=== PATIENT | female | born 1990 | race African-American/Black ===

== ENCOUNTER 2016-07-03 22:43 | Inpatient (IN) | payer OTHER ==
[2016-07-03 23:43] LABS: APPEARANCE,URINE CLEAR; BILIRUBIN,URINE NEGATIVE (NEGATIVE); GLUCOSE, URINE NEGATIVE (NEGATIVE); KETONES,URINE NEGATIVE (NEGATIVE); LEUKOCYTE ESTERASE,URINE SMALL (NEGATIVE); NITRITE,URINE NEGATIVE (NEGATIVE); PROTEIN,URINE NEGATIVE (NEGATIVE); URINE SPECIFIC GRAVITY 1.014; UROBILINOGEN,URINE NEGATIVE mg/dL (<2.0)
[2016-07-03 23:46] LABS: AMNISURE (ROM) POSITIVE (NEGATIVE)
[2016-07-03 23:56] LABS: URINE BARBITURATES SCREEN NEGATIVE; URINE METHADONE SCREEN NEGATIVE; URINE OPIATES LOW NEGATIVE; URINE PHENCYCLIDINE SCREEN NEGATIVE
[2016-07-03] MEDS ORDERED: RINGERS SOLUTION,LACTATED 1,000 ML IV PRN (23:57)
[2016-07-03] MEDS ORDERED: RINGERS SOLUTION,LACTATED 1,000 ML IV ONE (23:57)
[2016-07-03] MEDS ORDERED: OXYTOCIN/NORMAL SALINE 1,000 ML IV PRN (23:59)
[2016-07-04] MEDS ORDERED: PENICILLIN G POTASSIUM 5,000,000 UNIT in DEXTROSE 5%-WATER 100 ML IV ONE ×2
[2016-07-04] MEDS ORDERED: BENZOIN/ALOE VERA/STORAX/TOLU TINCTURE 60 ML TP PRN (00:01)
[2016-07-04] MEDS ORDERED: EPHEDRINE SULFATE INJ 50 MG/1 ML AMPULE IV PRN (00:01)
[2016-07-04] MEDS ORDERED: EPHEDRINE SULFATE INJ 50 MG/1 ML AMPULE IV ONE (00:01)
[2016-07-04] MEDS ORDERED: DIPHENHYDRAMINE HCL 50 MG/ML VIAL IV PRN (00:01)
[2016-07-04] MEDS ORDERED: BUPIVACAINE HCL 0.25 % INJ/PF (2.5 MG/1 ML) 30 ML VIAL INFIL ONE (00:01)
[2016-07-04] MEDS ORDERED: FENTANYL/BUPIVACAINE/NS/PF 100 ML EPI PRN (00:01)
[2016-07-04] MEDS ORDERED: OXYTOCIN/NORMAL SALINE 0 UNIT/0 ML RTUINJ ONE (00:17)
[2016-07-04] MEDS ORDERED: PENICILLIN G-K 5 MILLION UNIT VIAL ONE ×2 (00:17→03:57)
[2016-07-04 00:21] LABS: ABSOLUTE EOSINOPHILS # (AUTO) 0.1 10^3/uL (0.0-0.6); ABSOLUTE LYMPHOCYTES (AUTO) 1.8 10^3/uL (0.5-4.7); ABSOLUTE MONOCYTES (AUTO) 1.1 10^3/uL (0.1-1.4); ABSOLUTE NEUT (AUTO) 9.8 10^3/uL (1.7-8.2); BASOPHILS % (AUTO) 0.1 % (0-2); EOSINOPHILS % (AUTO) 0.7 % (0-6); HEMATOCRIT 34.4 % (36.0-47.0); HEMOGLOBIN 11.2 g/dL (12.0-15.5); HGB HCT DIFFERENCE -0.8; LYMPHOCYTES % (AUTO) 14.1 % (13-45); MEAN CORPUSCULAR HEMOGLOBIN 25.3 pg (27.0-33.4); MEAN CORPUSCULAR HGB CONC 32.5 g/dL (32.0-36.0); MEAN CORPUSCULAR VOLUME 78 fl (80-97); MONOCYTES % (AUTO) 8.3 % (3-13); RED BLOOD COUNT 4.42 10^6/uL (3.72-5.28); RED CELL DISTRIBUTION WIDTH 15.6 % (11.5-14.0); SEGMENTED NEUTROPHILS % (AUTO) 76.8 % (42-78); WHITE BLOOD COUNT 12.8 10^3/uL (4.0-10.5)
[2016-07-04] MEDS ORDERED: PENICILLIN G-K 5 MILLION UNIT VIAL IV PRN (03:30)
[2016-07-04] MEDS ORDERED: PENICILLIN G POTASSIUM 2,500,000 UNIT in DEXTROSE 5%-WATER 50 ML IV SCH (04:00)
[2016-07-04] MEDS ORDERED: MISOPROSTOL 0.2 MG TABLET ONE (05:44)
[2016-07-04] MEDS ORDERED: LIDOCAINE 1% INJ-PF (10 MG/ML) 30 ML SDV ONE (05:44)
[2016-07-04] MEDS ORDERED: OXYTOCIN/NORMAL SALINE 20 UNIT/1,000 ML RTUINJ ONE (05:44)
--- NOTE | 2016-07-04 08:01 | L&D Flow Sheet ---
LD Flowsheet Datetime Report Generated by CPN: 07/04/2016 08:00 Datetime: 07/04/2016 07:49 Pushing Position: Pushing with Contractions (Cori Camp, RNC) Pushing Progress: with Pushing (Cori Camp, RNC) Datetime: 07/04/2016 07:47 Communication Communication: Provider at Bedside (Cori Camp, RNC) Datetime: 07/04/2016 07:17 Actions for Decelerations: IV Bolus (Jael Marhefka, RN) Datetime: 07/04/2016 07:15 Vaginal Exam Dilatation (cm): 10.0 (Jael Marhefka, RN) Effacement (%): 100 (Jael Marhefka, RN) Station: 1 (Jael Marhefka, RN) Exam by: BSudhir Negron, RN (Jael Marhefka, RN) Datetime: 07/04/2016 07:14 Medications Pitocin (milliunit): Pitocin Discontinued (Jael Marhefka, RN) Datetime: 07/04/2016 07:13 Stage 2 Pushing: Urge to Push; Involuntary Pushing (Jael Marhefka, RN) Datetime: 07/04/2016 07:00 Respirations: 20 (Marimar Gonsalves) Uterine Activity Monitor Mode: External; Palpation (Marimar Gonsalves) Monitor Interventions for UA: [place] Adjusted (Marimar Gonsalves) Frequency (min): 1-3 (Marimar Gonsalves) Quality: Moderate to Strong (Marimar Gonsalves) Duration (sec): 50-70 (Marimar Gonsalves) Resting Tone (Palpate): Relaxed (Marimar Gonsalves) Assessment A Monitor Mode: External US (Marimar Gonsalves) Monitor Interventions for FHR: Ultrasound Adjusted (Marimar Gonsalves) FHR Baseline Rate : 130 (Marimar Gonsalves) FHR Baseline Changes: No Baseline Change (Marimar Gonsalves) Variability: Moderate 6-25 bpm (Marimar Gonsalves) Accelerations: 15X15 (Marimar Gonsalves) Decelerations: None (Marimar Gonsalves) LaborFlag: Labor (QS system process) Datetime: 07/04/2016 06:54 Provider Notified (Name): Dr Acosta notified of the patients cervix 9 with a lip/100/+1. Dr Acosta stated she will wait a little due to the patient being and next shift coming in soon. (Marimar Gonsalves) Datetime: 07/04/2016 06:53 Vaginal Exam Dilatation (cm): 9.0 (Annotations: anterior lip) (Marimar Gonsalves) Effacement (%): 100 (Marimar Gonsalves) Station: 1 (Marimar Gonsalves) Exam by: B Reilley RN (Marimar Gonsalves) Datetime: 07/04/2016 06:30 Vital Signs Stage of : Labor (Naomy Gomez, RN) Uterine Activity Monitor Mode: External; Palpation (Naomy Gomez, RN) Frequency (min): 1-5 (Naomy Gomez, RN) Quality: Strong (Naomy Gomez, RN) Duration (sec): 60-100 (Naomy Gomez, RN) Pattern: Normal: <= 5 Contractions in 10 Minutes (Naomy Gomez, RN) Resting Tone (Palpate): Relaxed (Naomy Gomez, RN) Contraction Comments: palpating contractions which match decels to confirm early deceleration (Naomy Gomez, RN) Assessment A Monitor Mode: External US (Naomy Gomez, RN) Monitor Interventions for FHR: Ultrasound Adjusted (Naomy Gomez, RN) FHR Baseline Rate : 130 (Naomy Gomez, RN) Variability: Moderate 6-25 bpm (Naomy Gomez, RN) Accelerations: 10X10 (Naomy Gomez, RN) Decelerations: Early (Naomy Gomez, RN) Communication Communication: RN at Bedside; RN Reviewed Strip (Naomy Gomez, RN) Datetime: 07/04/2016 06:26 I/O Interventions: Up to BR (Naomy Gomez, RN) Datetime: 07/04/2016 06:15 Vital Signs Stage of : Labor (Naomy Gomez, RN) Uterine Activity Monitor Mode: External; Palpation (Naomy Gomez, RN) Frequency (min): 1-6 (Naomy Gomez, RN) Quality: Strong (Naomy Gomez, RN) Duration (sec): 50-110 (Naomy Gomez, RN) Pattern: Normal: <= 5 Contractions in 10 Minutes (Naomy Gomez, RN) Resting Tone (Palpate): Relaxed (Naomy Gomez, RN) Assessment A Monitor Mode: External US (Naomy Gomez, RN) FHR Baseline Rate : 130 (Naomy Gomez, RN) Variability: Moderate 6-25 bpm (Naomy Gomez, RN) Accelerations: 15X15 (Naomy Gomez, RN) Decelerations: Early (Naomy Gomez, RN) Comments: episodes of stacked contractions, during noted decel (Naomy Gomez, RN) Medications Pitocin (milliunit): Pitocin Remains (milliunits) @ 8 (Naomy Gomez, RN) Communication Communication: RN at Bedside; RN Reviewed Strip (Naomy Gomez, RN) Datetime: 07/04/2016 06:11 NBP Sys/Elizabeth/Mean (mmHg): 108 (QS system process) : 71 (QS system process) : 85 (QS system process) Pulse: 93 (QS system process) LaborFlag: Labor (QS system process) Datetime: 07/04/2016 06:00 Vital Signs Stage of : Labor (Naomy Gomez, RN) Uterine Activity Monitor Mode: External; Palpation (Naomy Gomez, RN) Frequency (min): 3-4 (Naomy Gomez, RN) Quality: Strong (Naomy Gomez, RN) Duration (sec): 60-80 (Naomy Gomez, RN) Pattern: Normal: <= 5 Contractions in 10 Minutes (Naomy Gomez, RN) Resting Tone (Palpate): Relaxed (Naomy Gomez, RN) Assessment A Monitor Mode: External US (Naomy Gomez, RN) FHR Baseline Rate : 130 (Naomy Gomez, RN) Variability: Moderate 6-25 bpm (Naomy Gomez, RN) Accelerations: 10X10 (Naomy Gomez, RN) Decelerations: Early (Naomy Gomez, RN) Pain Pain Scale: 3 (Naomy Gomez, RN) Pain Presence: Intermittent (Naomy Gomez, RN) Pain Type: Contraction (Naomy Gomez, RN) Pain Location: Abdomen (Naomy Gomez, RN) Pain Goal: 1 (Naomy Gomez, RN) Pain Relief Measures: Comfort Measures (Naomy Gomez, RN) Pain Coping: Breathing Through Contractions (Naomy Gomez, RN) Medications Pitocin (milliunit): Pitocin Remains (milliunits) @ 8 (Naomy Gomez, RN) Comfort Measures: Breathing/Relaxation; Family Support (Naomy Gomez, RN) Communication Communication: RN at Bedside; RN Reviewed Strip (Naomy Gomez, RN) LaborFlag: Labor (QS system process) Datetime: 07/04/2016 05:58 Patient Care Comments: nursery notified of the potential need for them for delivery. (Marimar Gonsalves) Datetime: 07/04/2016 05:47 Vaginal Exam Dilatation (cm): 7.0 (Naomy Gomez, RN) Effacement (%): 90 (Naomy Gomez, RN) Station: 0 (Naomy Gomez, RN) Exam by: B Gomez, RN (Naomy Gomez, RN) Vaginal Bleeding: None (Naomy Gomez, RN) Cervix, Consistency: Soft (Naomy Gomez, RN) Cervix, Position: Midposition (Naomy Gomez, RN) Datetime: 07/04/2016 05:46 Patient Position/Activity: Right Tilt; Low Fowlers (Naomy Gomez, RN) Datetime: 07/04/2016 05:45 Vital Signs Stage of : Labor (Naomy Gomez, RN) Uterine Activity Monitor Mode: External; Palpation (Naomy Gomez, RN) Monitor Interventions for UA: [place] Adjusted (Naomy Gomez, RN) Frequency (min): 1-6 (Naomy Gomez, RN) Quality: Strong (Naomy Gomez, RN) Duration (sec): 50-80 (Naomy Gomez, RN) Pattern: Normal: <= 5 Contractions in 10 Minutes (Naomy Gomez, RN) Resting Tone (Palpate): Relaxed (Naomy Gomez, RN) Assessment A Monitor Mode: External US (Naomy Gomez, RN) Monitor Interventions for FHR: Ultrasound Adjusted (Naomy Gomez, RN) FHR Baseline Rate : 125 (Naomy Gomez, RN) Variability: Moderate 6-25 bpm (Naomy Gomez, RN) Accelerations: 10X10 (Naomy Gomez, RN) Decelerations: Early (Naomy Gomez, RN) Comments: RN at bedside adjusting FHR monitor (Naomy Gomez, RN) Medications Pitocin (milliunit): Pitocin Remains (milliunits) @ 8 (Naomy Gomez, RN) Communication Communication: RN at Bedside; RN Reviewed Strip (Naomy Gomez, RN) Datetime: 07/04/2016 05:38 Patient Care IV/Blood Work: New IV Bag Hung (Naomy Gomez, RN) Datetime: 07/04/2016 05:35 Monitor Interventions for UA: [place] Adjusted (Naomy Gomez, RN) Datetime: 07/04/2016 05:33 Monitor Interventions for UA: [place] Adjusted (Naomy Gomez, RN) Datetime: 07/04/2016 05:30 Vital Signs Stage of : Labor (Naomy Gomez, RN) Uterine Activity Monitor Mode: External; Palpation (Naomy Gomez, RN) Frequency (min): 2-3 (Naomy Gomez, RN) Quality: Strong (Naomy Gomez, RN) Duration (sec): 50-70 (Naomy Gomez, RN) Pattern: Normal: <= 5 Contractions in 10 Minutes (Naomy Gomez, RN) Resting Tone (Palpate): Relaxed (Naomy Gomez, RN) Assessment A Monitor Mode: External US (Naomy Gomez, RN) FHR Baseline Rate : 125 (Naomy Gomez, RN) Variability: Moderate 6-25 bpm (Naomy Gomez, RN) Accelerations: 15X15 (Naomy Gomez, RN) Decelerations: Early (Naomy Gomez, RN) Medications Pitocin (milliunit): Pitocin Remains (milliunits) @ 8 (Naomy Gomez, RN) Communication Communication: RN at Bedside; RN Reviewed Strip (Naomy Gomez, RN) Datetime: 07/04/2016 05:28 Patient Position/Activity: Right Lateral; Peanut Ball; Low Fowlers (Naomy Gomez, RN) Datetime: 07/04/2016 05:15 Vital Signs Stage of : Labor (Naomy Gomez, RN) Respirations: 16 (Naomy Gomez, RN) Temperature (F): 97.8 (Naomy Gomez, RN) Temperature (C): 36.6 (QS system process) Uterine Activity Monitor Mode: External; Palpation (Naomy Gomez, RN) Monitor Interventions for UA: [place] Adjusted (Naomy Gomez, RN) Frequency (min): irregular (Naomy Gomez, RN) Quality: Strong (Naomy Gomez, RN) Duration (sec): 40-120 (Naomy Gomez, RN) Pattern: Normal: <= 5 Contractions in 10 Minutes (Naomy Gomez, RN) Resting Tone (Palpate): Relaxed (Naomy Gomez, RN) Assessment A Monitor Mode: External US (Naomy Gomez, RN) FHR Baseline Rate : 120 (Naomy Gomez, RN) Variability: Moderate 6-25 bpm (Naomy Gomez, RN) Accelerations: 15X15 (Naomy Gomez, RN) Decelerations: Early (Naomy Gomez, RN) Pain Pain Scale: 3 (Naomy Gomez, RN) Pain Presence: Intermittent (Naomy Gomez, RN) Pain Type: Contraction (Naomy Gomez, RN) Pain Location: Abdomen (Naomy Gomez, RN) Pain Goal: 1 (Naomy Gomez, RN) Pain Relief Measures: Comfort Measures (Naomy Gomez, RN) Pain Coping: Breathing Through Contractions (Naomy Gomez, RN) Medications Pitocin (milliunit): Pitocin Remains (milliunits) @ 8 (Naomy Gomez, RN) Comfort Measures: Breathing/Relaxation; Family Support (Naomy Gomez, RN) Communication Communication: RN at Bedside; RN Reviewed Strip (Naomy Gomez, RN) LaborFlag: Labor (QS system process) Datetime: 07/04/2016 05:10 NBP Sys/Elizabeth/Mean (mmHg): 111 (QS system process) : 74 (QS system process) : 88 (QS system process) Pulse: 94 (QS system process) LaborFlag: Labor (QS system process) Datetime: 07/04/2016 05:00 Vital Signs Stage of : Labor (Naomy Gomez, RN) Uterine Activity Monitor Mode: External (Naomy Gomez, RN) Frequency (min): irregular (Naomy Gomez, RN) Quality: Moderate to Strong (Naomy Gomez, RN) Duration (sec): UTD (Naomy Gomez, RN) Pattern: Normal: <= 5 Contractions in 10 Minutes (Naomy Gomez, RN) Assessment A Monitor Mode: External US (Naomy Gomez, RN) FHR Baseline Rate : 120 (Naomy Gomez, RN) Variability: Moderate 6-25 bpm (Naomy Gomez, RN) Accelerations: 15X15 (Naomy Gomez, RN) Decelerations: None (Naomy Gomez, RN) Medications Pitocin (milliunit): Pitocin Remains (milliunits) @ 8 (Naomy Gomez, RN) Communication Communication: RN Reviewed Strip (Naomy Gomez, RN) Datetime: 07/04/2016 04:45 Vital Signs Stage of : Labor (Naomy Gomez, RN) Uterine Activity Monitor Mode: External (Naomy Gomez, RN) Frequency (min): 1-5 (Naomy Gomez, RN) Quality: Moderate to Strong (Naomy Gomez, RN) Duration (sec): 40-100 (Naomy Gomez, RN) Pattern: Normal: <= 5 Contractions in 10 Minutes (Naomy Gomez, RN) Assessment A Monitor Mode: External US (Naomy Gomez, RN) FHR Baseline Rate : 130 (Naomy Gomez, RN) Variability: Moderate 6-25 bpm (Naomy Gomez, RN) Accelerations: 15X15 (Naomy Gomez, RN) Decelerations: Early (Naomy Gomez, RN) Medications Pitocin (milliunit): Pitocin Remains (milliunits) @ 8 (Naomy Gomez, RN) Communication Communication: RN Reviewed Strip (Naomy Gomez, RN) Datetime: 07/04/2016 04:30 Vital Signs Stage of : Labor (Naomy Gomez, RN) Uterine Activity Monitor Mode: External (Naomy Gomez, RN) Frequency (min): 1-8.5 (Naomy Gomez, RN) Quality: Moderate to Strong (Naomy Gomez, RN) Duration (sec): 50-140 (Naomy Gomez, RN) Pattern: Normal: <= 5 Contractions in 10 Minutes (Naomy Gomez, RN) Assessment A Monitor Mode: External US (Naomy Gomez, RN) FHR Baseline Rate : 125 (Naomy Gomez, RN) Variability: Moderate 6-25 bpm (Naomy Gomez, RN) Accelerations: 15X15 (Naomy Gomez, RN) Decelerations: Early (Naomy Gomez, RN) Medications Pitocin (milliunit): Pitocin Remains (milliunits) @ 8 (Naomy Gomez, RN) Communication Communication: RN Reviewed Strip (Naomy Gomez, RN) Datetime: 07/04/2016 04:15 Vital Signs Stage of : Labor (Naomy Gomez, RN) Uterine Activity Monitor Mode: External; Palpation (Naomy Gomez, RN) Monitor Interventions for UA: [place] Adjusted (Naomy Gomez, RN) Frequency (min): irregular (Naomy Gomez, RN) Quality: Moderate to Strong (Naomy Gomez, RN) Duration (sec): 50-70 (Naomy Gomez, RN) Pattern: Normal: <= 5 Contractions in 10 Minutes (Naomy Gomez, RN) Resting Tone (Palpate): Relaxed (Naomy Gomez, RN) Assessment A Monitor Mode: External US (Naomy Gomez, RN) FHR Baseline Rate : 120 (Naomy Gomez, RN) Variability: Moderate 6-25 bpm (Naomy Gomez, RN) Accelerations: 15X15 (Naomy Gomez, RN) Decelerations: None (Naomy Gomez, RN) Medications Pitocin (milliunit): Pitocin Remains (milliunits) @ 8 (Naomy Gomez, RN) Communication Communication: RN at Bedside; RN Reviewed Strip (Naomy Gomez, RN) Datetime: 07/04/2016 04:05 Vital Signs Stage of : Labor (Naomy Gomez, RN) Vaginal Exam Dilatation (cm): 4.5 (Naomy Gomez, RN) Effacement (%): 90 (Naomy Gomez, RN) Station: 0 (Naomy Gomez, RN) Exam by: B Gomez, RN (Naomy Gomez, RN) Vaginal Bleeding: None (Naomy Gomez, RN) Cervix, Consistency: Moderate (Naomy Gomez, RN) Cervix, Position: Posterior (Naomy Gomez, RN) Datetime: 07/04/2016 04:02 Medications Pitocin (milliunit): Pitocin Increased to (milliunits) @ 8 (Naomy Gomez, RN) Antibiotics: Penicillin IV (Units) @ 2.5 million units (Naomy Gomez, RN) Datetime: 07/04/2016 04:00 Vital Signs Stage of : Antepartum (Naomy Gomez, RN) Uterine Activity Monitor Mode: External (Naomy Gomez, RN) Frequency (min): irregular (Naomy Gomez, RN) Quality: Moderate to Strong (Naomy Gomez, RN) Duration (sec): 50-70 (Naomy Gomez, RN) Pattern: Normal: <= 5 Contractions in 10 Minutes (Naomy Gomez, RN) Assessment A Monitor Mode: External US (Naomy Gomez, RN) FHR Baseline Rate : 125 (Naomy Gomez, RN) Variability: Moderate 6-25 bpm (Naomy Gomez, RN) Accelerations: 15X15 (Naomy Gomez, RN) Decelerations: Early (Naomy Gomez, RN) Medications Pitocin (milliunit): Pitocin Remains (milliunits) @ 6 (Naomy Gomez, RN) Communication Communication: RN Reviewed Strip (Naomy Gomez, RN) Datetime: 07/04/2016 03:45 Vital Signs Stage of : Antepartum (Naomy Gomez, RN) Uterine Activity Monitor Mode: External; Palpation (Naomy Gomez, RN) Frequency (min): 1-4 (Naomy Gomez, RN) Quality: Moderate to Strong (Naomy Gomez, RN) Duration (sec): 60-90 (Naomy Gomez, RN) Pattern: Normal: <= 5 Contractions in 10 Minutes (Naomy Gomez, RN) Resting Tone (Palpate): Relaxed (Naomy Gomez, RN) Assessment A Monitor Mode: External US (Naomy Gomez, RN) FHR Baseline Rate : 120 (Naomy Gomez, RN) Variability: Moderate 6-25 bpm (Naomy Gomez, RN) Accelerations: 15X15 (Naomy Gomez, RN) Decelerations: None (Naomy Gomez, RN) Medications Pitocin (milliunit): Pitocin Remains (milliunits) @ 6 (Naomy Gomez, RN) Communication Communication: RN at Bedside; RN Reviewed Strip (Naomy Gomez, RN) Datetime: 07/04/2016 03:30 Vital Signs Stage of : Antepartum (Naomy Gomez, RN) Uterine Activity Monitor Mode: External (Naomy Gomez, RN) Frequency (min): 1-5.5 (Naomy Gomez, RN) Quality: Mild (Naomy Gomez, RN) Duration (sec): 50-90 (Naomy Gomez, RN) Pattern: Normal: <= 5 Contractions in 10 Minutes (Naomy Gomez, RN) Assessment A Monitor Mode: External US (Naomy Gomez, RN) FHR Baseline Rate : 120 (Naomy Gomez, RN) Variability: Moderate 6-25 bpm (Naomy Gomez, RN) Accelerations: 15X15 (Naomy Gomez, RN) Decelerations: None (Naomy Gomez, RN) Medications Pitocin (milliunit): Pitocin Remains (milliunits) @ 6 (Naomy Gomez, RN) Communication Communication: RN Reviewed Strip (Naomy Gomez, RN) Datetime: 07/04/2016 03:15 Vital Signs Stage of : Antepartum (Naomy Gomez, RN) Uterine Activity Monitor Mode: External (Naomy Gomez, RN) Frequency (min): 1-5 (Naomy Gomez, RN) Quality: Mild (Naomy Gomez, RN) Duration (sec): 40-100 (Naomy Gomez, RN) Pattern: Normal: <= 5 Contractions in 10 Minutes (Naomy Gmoez, RN) Resting Tone (Palpate): Relaxed (Naomy Gomez, RN) Assessment A Monitor Mode: External US (Naomy Gomez, RN) FHR Baseline Rate : 120 (Naomy Gomez, RN) Variability: Moderate 6-25 bpm (Naomy Gomez, RN) Accelerations: 15X15 (Naomy Gomez, RN) Decelerations: None (Naomy Gomez, RN) Medications Pitocin (milliunit): Pitocin Remains (milliunits) @ 6 (Naomy Gomez, RN) Communication Communication: RN Reviewed Strip (Naomy Gomez, RN) Datetime: 07/04/2016 03:00 Vital Signs Stage of : Antepartum (Naomy Gomez, RN) Uterine Activity Monitor Mode: External; Palpation (Naomy Gomez, RN) Frequency (min): 1.5-7 (Naomy Gomez, RN) Quality: Mild (Naomy Gomez, RN) Duration (sec): 60-80 (Naomy Gomez, RN) Pattern: Normal: <= 5 Contractions in 10 Minutes (Naomy Gomez, RN) Assessment A Monitor Mode: External US (Naomy Gomez, RN) FHR Baseline Rate : 120 (Naomy Gomez, RN) Variability: Moderate 6-25 bpm (Naomy Gomez, RN) Accelerations: 15X15 (Naomy Gomez, RN) Decelerations: None (Naomy Gomez, RN) Medications Pitocin (milliunit): Pitocin Remains (milliunits) @ 6 (Naomy Gomez, RN) Communication Communication: RN Reviewed Strip (Naomy Gomez, RN) Datetime: 07/04/2016 02:45 Vital Signs Stage of : Antepartum (Naomy Gomez, RN) Respirations: 18 (Naomy Gomez, RN) Uterine Activity Monitor Mode: External (Naomy Gomez, RN) Frequency (min): 1-6 (Naomy Gomez, RN) Quality: Mild (Naomy Gomez, RN) Duration (sec): 40-140 (Naomy Gomez, RN) Pattern: Normal: <= 5 Contractions in 10 Minutes (Naomy Gomez, RN) Assessment A Monitor Mode: External US (Naomy Gomez, RN) FHR Baseline Rate : 120 (Naomy Gomez, RN) Variability: Moderate 6-25 bpm (Naomy Gomez, RN) Accelerations: 15X15 (Naomy Gomez, RN) Decelerations: None (Naomy Gomez, RN) Pain Pain Scale: 1 (Naomy Gomez, RN) Pain Presence: Intermittent (Naomy Gomez, RN) Pain Type: Cramping (Naomy Gomez, RN) Pain Location: Abdomen (Naomy Gomez, RN) Pain Relief Measures: Comfort Measures (Naomy Gomez, RN) Pain Coping: Sleeping (Naomy Gomez, RN) Medications Pitocin (milliunit): Pitocin Remains (milliunits) @ 6 (Naomy Gomez, RN) Comfort Measures: Breathing/Relaxation; Family Support (Naomy Gomez, RN) Communication Communication: RN at Bedside; RN Reviewed Strip (Naomy Gomez, RN) LaborFlag: Antepartum (QS system process) Datetime: 07/04/2016 02:34 NBP Sys/Elizabeth/Mean (mmHg): 113 (QS system process) : 78 (QS system process) : 92 (QS system process) Pulse: 82 (QS system process) Temperature (F): 97.7 (Naomy Gomez, RN) Temperature (C): 36.5 (QS system process) Medications Pitocin (milliunit): Pitocin Increased to (milliunits) @ 6 (Naomy Gomez, RN) LaborFlag: Antepartum (QS system process) Datetime: 07/04/2016 02:30 Vital Signs Stage of : Antepartum (Naomy Gomez, RN) Uterine Activity Monitor Mode: External (Naomy Gomez, RN) Frequency (min): 2-8 (Naomy Gomez, RN) Quality: Mild (Naomy Gomez, RN) Duration (sec): 60-120 (Naomy Gomez, RN) Pattern: Normal: <= 5 Contractions in 10 Minutes (Naomy Gomez, RN) Resting Tone (Palpate): Relaxed (Naomy Gomez, RN) Assessment A Monitor Mode: External US (Naomy Gomez, RN) FHR Baseline Rate : 130 (Naomy Gomez, RN) Variability: Moderate 6-25 bpm (Naomy Gomez, RN) Accelerations: 15X15 (Naomy Gomez, RN) Medications Pitocin (milliunit): Pitocin Remains (milliunits) @ 4 (Naomy Gomez, RN) Communication Communication: RN Reviewed Strip (Naomy Gomez, RN) Datetime: 07/04/2016 02:15 Vital Signs Stage of : Antepartum (Naomy Gomez, RN) Uterine Activity Monitor Mode: External (Naomy Gomez, RN) Frequency (min): 1.5-3.5 (Naomy Gomez, RN) Quality: Mild (Naomy Gomez, RN) Duration (sec): 70-120 (Naomy Gomez, RN) Pattern: Normal: <= 5 Contractions in 10 Minutes (Naomy Gomez, RN) Resting Tone (Palpate): Relaxed (Naomy Gomez, RN) Assessment A Monitor Mode: External US (Naomy Gomez, RN) FHR Baseline Rate : 130 (Naomy Gomez, RN) Variability: Moderate 6-25 bpm (Naomy Gomez, RN) Accelerations: 10X10 (Naomy Gomez, RN) Decelerations: None (Naomy Gomez, RN) Medications Pitocin (milliunit): Pitocin Remains (milliunits) @ 4 (Naomy Gomez, RN) Communication Communication: RN Reviewed Strip (Naomy Gomez, RN) Datetime: 07/04/2016 02:00 Vital Signs Stage of : Antepartum (Naomy Gomez, RN) Uterine Activity Monitor Mode: External (Naomy Gomez, RN) Frequency (min): 1-7 (Naomy Gomez, RN) Quality: Mild (Naomy Gomez, RN) Duration (sec): 50-90 (Naomy Gomez, RN) Pattern: Normal: <= 5 Contractions in 10 Minutes (Naomy Gomez, RN) Resting Tone (Palpate): Relaxed (Naomy Gomez, RN) Assessment A Monitor Mode: External US (Naomy Gomez, RN) FHR Baseline Rate : 130 (Naomy Gomez, RN) Variability: Moderate 6-25 bpm (Naomy Gomez, RN) Accelerations: 10X10 (Naomy Gomez, RN) Decelerations: None (Naomy Gomez, RN) Medications Pitocin (milliunit): Pitocin Remains (milliunits) @ 4 (Naomy Gomez, RN) Communication Communication: RN Reviewed Strip (Naomy Gomez, RN) Datetime: 07/04/2016 01:45 Vital Signs Stage of : Antepartum (Naomy Gomez, RN) Respirations: 18 (Naomy Gomez, RN) Uterine Activity Monitor Mode: External (Naomy Gomez, RN) Frequency (min): 1-6 (Naomy Gomez, RN) Quality: Mild (Naomy Gomez, RN) Duration (sec): 60-190 (Naomy Gomez, RN) Pattern: Normal: <= 5 Contractions in 10 Minutes (Naomy Gomez, RN) Resting Tone (Palpate): Relaxed (Naomy Gomez, RN) Assessment A Monitor Mode: External US (Naomy Gomez, RN) FHR Baseline Rate : 130 (Naomy Gomez, RN) Variability: Moderate 6-25 bpm (Naomy Gomez, RN) Accelerations: 15X15 (Naomy Gomez, RN) Decelerations: None (Naomy Gomez, RN) Pain Pain Scale: 1 (Naomy Gomez, RN) Pain Presence: Intermittent (Naomy Gomez, RN) Pain Type: Cramping (Naomy Gomez, RN) Pain Location: Abdomen (Naomy Gomez, RN) Pain Coping: Talking Through Contractions; Sleeping (Naomy Gomez, RN) Comfort Measures: Breathing/Relaxation; Family Support (Naomy Gomez, RN) Communication Communication: RN at Bedside; RN Reviewed Strip (Naomy Gomez, RN) LaborFlag: Antepartum (QS system process) Datetime: 07/04/2016 01:41 NBP Sys/Elizabeth/Mean (mmHg): 110 (QS system process) : 70 (QS system process) : 83 (QS system process) Pulse: 81 (QS system process) Medications Pitocin (milliunit): Pitocin Increased to (milliunits) @ 4 (Naomy Gomez, RN) LaborFlag: Antepartum (QS system process) Datetime: 07/04/2016 01:34 Membrane Status: Ruptured (Dominga Lattibeaudeir, RN) Datetime: 07/04/2016 01:30 Vital Signs Stage of : Antepartum (Naomy Gomez, RN) Uterine Activity Monitor Mode: External (Naomy Gomez, RN) Frequency (min): 3-3.5 (Naomy Gomez, RN) Quality: Mild (Naomy Gomez, RN) Duration (sec): 60-170 (Naomy Gomez, RN) Pattern: Normal: <= 5 Contractions in 10 Minutes (Naomy Gomez, RN) Resting Tone (Palpate): Relaxed (Naomy Gomez, RN) Assessment A Monitor Mode: External US (Naomy Gomez, RN) FHR Baseline Rate : 130 (Naomy Gomez, RN) Variability: Moderate 6-25 bpm (Naomy Gomez, RN) Accelerations: 15X15 (Naomy Gomez, RN) Decelerations: None (Naomy Gomez, RN) Medications Pitocin (milliunit): Pitocin Remains (milliunits) @ 2 (Naomy Gomez, RN) Communication Communication: RN at Bedside; RN Reviewed Strip (Naomy Gomez, RN) Datetime: 07/04/2016 01:15 Vital Signs Stage of : Antepartum (Naomy Gomez, RN) Uterine Activity Monitor Mode: External (Naomy Gomez, RN) Frequency (min): x2 (Naomy Gomez, RN) Quality: Mild (Naomy Gomez, RN) Duration (sec): 60-240 (Naomy Gomez, RN) Pattern: Normal: <= 5 Contractions in 10 Minutes (Naomy Gomez, RN) Resting Tone (Palpate): Relaxed (Naomy Gomez, RN) Assessment A Monitor Mode: External US (Naomy Gomez, RN) FHR Baseline Rate : 130 (Naomy Gomez, RN) Variability: Moderate 6-25 bpm (Naomy Gomez, RN) Accelerations: 15X15 (Naomy Gomez, RN) Decelerations: None (Naomy Gomez, RN) Medications Pitocin (milliunit): Pitocin Remains (milliunits) @ 2 (Naomy Gomez, RN) Communication Communication: RN at Bedside; RN Reviewed Strip (Naomy Gomez, RN) Datetime: 07/04/2016 01:14 I/O Interventions: Up to BR (Naomy Gomez, RN) Datetime: 07/04/2016 01:12 Medications Pitocin (milliunit): Pitocin Started (milliunits) @ 2 (Naomy Gomez, RN) Datetime: 07/04/2016 01:00 Vital Signs Stage of : Antepartum (Naomy Gomez, RN) Uterine Activity Monitor Mode: External (Naomy Gomez, RN) Frequency (min): x2 (Naomy Gomez, RN) Quality: Mild (Naomy Gomez, RN) Duration (sec): 80-100 (Naomy Gomez, RN) Pattern: Normal: <= 5 Contractions in 10 Minutes (Naomy Gomez, RN) Resting Tone (Palpate): Relaxed (Naomy Gomez, RN) Assessment A Monitor Mode: External US (Naomy Gomez, RN) FHR Baseline Rate : 130 (Naomy Gomez, RN) Variability: Moderate 6-25 bpm (Naomy Gomez, RN) Accelerations: 15X15 (Naomy Gomez, RN) Decelerations: None (Naomy Gomez, RN) Communication Communication: RN at Bedside; RN Reviewed Strip (Naomy Gomez, RN) Datetime: 07/04/2016 00:58 Patient Care IV/Blood Work: New IV Bag Hung (Naomy Gomez, RN) Datetime: 07/04/2016 00:31 Antibiotics: Start Antibiotics; Penicillin IV (Units) @ 5 million units (Naomy Gomez, RN) Datetime: 07/04/2016 00:30 Vital Signs Stage of : Antepartum (Naomy Gomez, RN) Respirations: 18 (Naomy Gomez, RN) Uterine Activity Monitor Mode: External (Naomy Gomez, RN) Frequency (min): x2 (Naomy Gomez, RN) Quality: Mild (Naomy Gomez, RN) Duration (sec): 100-130 (Naomy Gomez, RN) Pattern: Normal: <= 5 Contractions in 10 Minutes (Naomy Gomez, RN) Resting Tone (Palpate): Relaxed (Naomy Gomez, RN) Assessment A Monitor Mode: External US (Naomy Gomez, RN) FHR Baseline Rate : 135 (Naomy Gomez, RN) Variability: Moderate 6-25 bpm (Naomy Gomez, RN) Accelerations: 15X15 (Naomy Gomez, RN) Decelerations: None (Naomy Gomez, RN) Pain Pain Scale: 0 (Naomy Gomez, RN) Pain Presence: None/Denies (Naomy Gomez, RN) Pain Type: N/A (Naomy Gomez, RN) Communication Communication: RN at Bedside; RN Reviewed Strip (Naomy Gomez, RN) LaborFlag: Antepartum (QS system process) Datetime: 07/04/2016 00:14 Patient Care IV/Blood Work: IV Started; IV Bolus Started (Naomy Gomez, RN) Patient Care Comments: 18 gauge placed in L wrist by A Gonsalves, RN (Naomy Gomez, RN) Datetime: 07/04/2016 00:12 Patient Care IV/Blood Work: Labs Drawn (Naomy Gomez, RN) Datetime: 07/04/2016 00:10 Procedures: Consents Signed (Naomy Gomez, RN) Datetime: 07/04/2016 00:00 Vital Signs Stage of : Antepartum (Naomy Gomez, RN) NBP Sys/Elizabeth/Mean (mmHg): 118 (QS system process) : 77 (QS system process) : 91 (QS system process) Pulse: 90 (QS system process) Uterine Activity Monitor Mode: External; Palpation (Naomy Gomez, RN) Frequency (min): x1 (Naomy Gomez, RN) Quality: Mild (Naomy Gomez, RN) Duration (sec): 170 (Naomy Gomez, RN) Pattern: Normal: <= 5 Contractions in 10 Minutes (Naomy Gomez, RN) Resting Tone (Palpate): Relaxed (Naomy Gomez, RN) Assessment A Monitor Mode: External US (Naomy Gomez, RN) FHR Baseline Rate : 130 (Naomy Gomez, RN) Variability: Moderate 6-25 bpm (Naomy Gomez, RN) Accelerations: 15X15 (Naomy Gomez, RN) Decelerations: None (Naomy Gomez, RN) Communication Communication: RN at Bedside; RN Reviewed Strip (Naomy Gomez, RN) LaborFlag: Antepartum (QS system process) Datetime: 07/03/2016 23:30 Vital Signs Stage of : Labor (Naomy Gomez, RN) Uterine Activity Monitor Mode: External; Palpation (Naomy Gomez, RN) Frequency (min): x1 (Naomy Gomez, RN) Quality: Mild (Naomy Gomez, RN) Duration (sec): 120 (Naomy Gomez, RN) Pattern: Normal: <= 5 Contractions in 10 Minutes (Naomy Gomez, RN) Resting Tone (Palpate): Relaxed (Naomy Gomez, RN) Assessment A Monitor Mode: External US (Naomy Gomez, RN) FHR Baseline Rate : 130 (Naomy Gomez, RN) Variability: Moderate 6-25 bpm (Naomy Gomez, RN) Accelerations: 15X15 (Naomy Gomez, RN) Decelerations: None (Naomy Gomez, RN) Communication Communication: RN at Bedside; RN Reviewed Strip (Naomy Gomez, RN) Datetime: 07/03/2016 23:28 Pain Pain Scale: 0 (Naomy Gomez, RN) Pain Presence: None/Denies (Naomy Gomez, RN) Pain Type: N/A (Naomy Gomez, RN) Vaginal Bleeding: None (Naomy Gomez, RN) Maternal Assessment Level of Consciousness: Fully Conscious (Naomy Gomez, RN) DTR's/Clonus: DTRs 1+; No Clonus (Naomy Gomez, RN) Headache: Denies (Naomy Gomez, RN) Breath Sounds, Left: Clear and Equal (Naomy Gomez, RN) Breath Sounds, Right: Clear and Equal (Naomy Gomez, RN) Nausea/Vomiting: Denies (Naomy Gomez, RN) RUQ Epigastric Pain: Denies (Naomy Gomez, RN) Datetime: 07/03/2016 23:23 Membranes Ruptured Date/Time: 07/03/2016 22:15 (Margi Palakalysha Mulligan RN) Membranes Rupture Method: Spontaneous (Dominga Greenfield RN) Amniotic Fluid Color: Clear (Dominga Greenfield RN) Amniotic Fluid Amount: Small (Dominga Greenfield RN) Amniotic Fluid Odor: Normal (Dominga Greenfield RN) Datetime: 07/03/2016 23:15 Membrane Comments: Fern collected and sent (Naomy Gomez, RN) Datetime: 07/03/2016 23:12 Vaginal Exam Dilatation (cm): 2.0 (Naomy Gomez RN) Effacement (%): 50 (Naomy Gomez RN) Station: -3 (Naomy Gomez RN) Exam by: Janice Gomez RN (Naomy Gomez RN) Vaginal Bleeding: None (Naomy Gomez RN) Cervix, Consistency: Moderate (Naomy Gomez RN) Cervix, Position: Posterior (Naomy Gomez RN)
[2016-07-04] MEDS ORDERED: ZOLPIDEM TARTRATE 5 MG TABLET PO PRN (08:08)
[2016-07-04] MEDS ORDERED: BENZOCAINE/MENTHOL AEROSOL SPRAY 56 ML TOP PRN (08:08)
[2016-07-04] MEDS ORDERED: OXYTOCIN/NORMAL SALINE 1,000 ML IV PRN (08:08)
[2016-07-04] MEDS ORDERED: DIBUCAINE 1% OINTMENT 28 GM TP PRN (08:08)
[2016-07-04] MEDS ORDERED: MEASLES,MUMPS&RUBELLA VACC/PF 0.5 ML VIAL SUBCUT PRN (08:08)
[2016-07-04] MEDS ORDERED: DIPH/PERTUSS(ACELL)/TETANUS VAC/PF 0.5 ML SYR (>=10YO) IM PRN (08:08)
[2016-07-04] MEDS ORDERED: ACETAMINOPHEN WITH CODEINE #3 TABLET PO PRN ×2 (08:08)
[2016-07-04] MEDS ORDERED: IBUPROFEN 800 MG TABLET ONE (08:57)
[2016-07-04] MEDS: IBUPROFEN 800 MG TABLET PO SCH ×2 (09:07→22:21)
[2016-07-04] MEDS ORDERED: PENICILLIN G-K 5 MILLION UNIT VIAL IV SCH (10:00)
--- NOTE | 2016-07-04 10:43 | Admission Physical ---
Datetime Report Generated by CPN: 07/04/2016 10:42 CURRENT ADMISSION Hx Assessment: The History has been Reviewed and is Current Chief Complaint: Uterine Contractions; Suspected Ruptured Membranes Indication for Induction: Not Applicable Admit Plan: Admit to Unit; Initiate Labor Protocol ALLERGIES Medication Allergies: No Medication Allergies: No Known Allergies (07/03/2016) Medication Allergies: No Known Allergies (07/07/2013) Latex: No Latex Allergies Food Allergies: none Environmental Allergies: none OBSTETRICAL HISTORY EDC: 07/05/2016 00:00 : 2 Para: 0 Term: 0 : 0 SAB: 0 IAB: 0 Ectopic: 0 Livin Cesareans: 0 VBACs: 0 Multiple Births: 0 Gestational Diabetes: No Rh Sensitization: No Incompetent Cervix: No LINDA: No Infertility: No ART Treatment: No Uterine Anomaly: No IUGR: No Hx Previous C/S: No Macrosomia: No Hx Loss/Stillborn: No PIH: No Hx : No Placenta Previa/Abruption: No Depression/PP Depression: No PTL/PROM: No Post Hemorrhage: No Current Procedures: Ultrasound; NST Obstetrical History Comments: G1: 2013 G2: Current SEE RECORDS Alcohol: No Marijuana : No Cocaine: No Other Illicit Drugs: No Cigarettes: Never Smoker. [id number] MEDICAL HISTORY Diabetes: No Blood Transfusion: No Pulmonary Disease (Asthma, TB): No Breast Disease: No Hypertension: No Senior Nuclear Medicine Technologist Surgery: No Heart Disease: No Hosp/Surgery: No Autoimmune Disorder: No Anesthetic Complications: No Kidney Disease: No Abnormal Pap Smear: Yes Neuro/Epilepsy: No Psychiatric Disorders: No Other Medical Diseases: No Hepatitis/Liver Disease: No Significant Family History: No Varicosities/Phlebitis: No Trauma/Violence : No Thyroid Dysfunction: No Medical History Comments: abnormal pap during pregancy- to repeat after delivery INFECTIOUS HISTORY Gonorrhea: No Genital Herpes: No Chlamydia: No Tuberculosis: No Syphilis: No Hepatitis: No HIV/AIDS Exposure: No Rash or Viral Illness: No HPV: Yes PHYSICAL EXAM General: Normal HEENT: Normal Neurologic: Normal Thyroid: Deferred Heart: Normal Lungs: Normal Breast: Normal Back: Normal Abdomen: Normal Genitourinary Exam: Normal Extremities: Normal DTRs: Normal Pelvic Type: Adequate Vital Signs: Reviewed VAGINAL EXAM Dilatation: 7 Effacement: 90 Station: 0 Contraction Comments: 2 -4 MEMBRANES Membranes: Ruptured Amniotic Fluid Color: Clear FETUS A EGA: 39.6 Monitoring: External US FHR- Baseline: 125 Variability: Moderate 6-25bpm Accelerations: 15X15 Decelerations: None FHR Category: Category I Estimated Weight (gm): 3400 Presentation: Vertex Admit Comment: Active labor, SROM 2215 clear, arrived at 11 pm (250/-3) pit prn GBS +, PCN Declines pain medication Admit to unit Labor protocol see hx for complete hx. PLANS FOR LABOR AND DELIVERY Labor and Delivery: None Pain Management: Natural; Medications; Epidural Other Pain Management Plans: open to options Feeding Preference: Breast Benefit of Breast Feed Discussed: Yes Circumcision: Yes INFORMED CONSENT Assignment: Bibi Acosta MD Signature: with User ID: [email or web address] : with User ID: [email or web address]
[2016-07-04] MEDS: SENNOSIDES/DOCUSATE 8.6-50 MG 1 EACH TABLET PO SCH (11:03)
[2016-07-04] MEDS: PRENATAL VITAMIN W-O CA NO5/FE FUMARATE/FA CAPSULE PO SCH (11:03)
[2016-07-04] MEDS: FERROUS SULFATE 325 MG TABLET PO SCH ×2 (11:04→17:34)
[2016-07-04] MEDS: DOCUSATE SODIUM 100 MG CAPSULE PO SCH ×2 (11:05→17:34)
[2016-07-04 11:50] VITALS: BP 121/59
--- NOTE | 2016-07-04 13:54 | Delivery Summary ---
Del Sum A-C Datetime Report Generated by CPN: 07/04/2016 13:54 ADMISSION DATA Chief Complaint: Uterine Contractions; Suspected Ruptured Membranes Indication for Induction: Not Applicable Admission Impression: Term, Intrauterine Admit Provider Comments: Active labor, SROM 2215 clear, arrived at 11 pm (/-3) pit prn GBS +, PCN Declines pain medication Admit to unit Labor protocol see hx for complete hx. DELIVERY PERSONNEL Delivery Doctor:: Carole Ward CNM Nurse Smoke Room Operator Certified:: Carole Ward CNM Labor and Delivery Nurse:: Jael Roach RNfuneral planning counselor Nurse:: STANISLAW Galdamez Copier Operator/MOTOR POOL DRIVER: Marimar Lema CNA II Copier Operator/MOTOR POOL DRIVER: Bibi Chen CST MATERNAL INFORMATION Delivery Anesthesia: None Medications After Delivery: Pitocin Bolus-Please Comment Meds After Delivery Comment: Pitocin 20 units in 1000 ml NSS open for bolus Estimated Blood Loss (ml): 300 Maternal Complications: Precipitous Labor (<3hrs) Provider Comments: of viable male infant, head delivered, loose nuchal noted, reduced, shoulders and body delivered without difficulty, infant with spontaneous cry and respirations, to maternal abdomen, cord clamped X2, cut free by pts support person after 2 minute delay, sponaneous delivery of placenta, appeart intact, 3 VC. Repair as above, hemostasis acheived with external fundal massage and IV pitocin. Routin pp care, mother and in stable condition. LABOR SUMMARY EDC: 07/05/2016 00:00 No. Babies in Womb: 1 Attempted: No Labor Anesthesia: None LABOR INFORMATION Reason for Induction: Not Applicable Onset of Labor: 07/04/2016 04:05 Complete Dilatation: 07/04/2016 07:15 Oxytocin: Augmentation Group B Beta Strep: Positive Antibiotics # of Doses: 2 Antibiotics Time of Last Dose: 0402 Name of Antibiotic Given: PCN Steroids Given: None Reason Steroids Not Administered: Not Applicable MEMBRANES Membranes Rupture Method: Spontaneous Rupture of Membranes: 07/03/2016 22:15 Length of Rupture (hr): 9.70 Amniotic Fluid Color: Clear Amniotic Fluid Amount: Small Amniotic Fluid Odor: Normal STAGES OF LABOR Stage 1 hr: 3 Stage 1 min: 10 Stage 2 hr: 0 Stage 2 min: 42 Stage 3 hr: 0 Stage 3 min: 3 Total Time in Labor hr: 3 Total Time in Labor min: 55 VAGINAL DELIVERY Episiotomy: None Laceration Extension: Second Degree Laceration Type: Perineal Laceration Repair: Yes Laceration Repair Note: Repaired with 3-0 chromic using lidocaine for local anesthesia Sponge Count Correct: N/A Sharps Count Correct: N/A CSECTION DELIVERY Primary Indication: N/A Secondary Indication: N/A CSection Incidence: N/A Labor: N/A Elective: N/A CSection Incision: N/A BABY A INFORMATION Delivery Date/Time: 07/04/2016 07:57 Method of Delivery: Vaginal Born in Route : No : N/A Forceps: N/A Vacuum Extraction: N/A Shoulder Dystocia : No PRESENTATION/POSITION BABY A Presentation: Cephalic Cephalic Presentation: Vertex Vertex Position: Right Occipital Anterior Breech Presentation: N/A PLACENTA INFORMATION BABY A Placenta Delivery Time : 07/04/2016 08:00 Placenta Method of Delivery: Spontaneous Placenta Status: Delivered SCORES BABY A Heart Rate 1 min: >100 bpm Resp Effort 1 min: Good Cry Reflex Irritability 1 min: Cough or Sneeze or Pulls Away Muscle Tone 1 min: Active Motion Color 1 min: Blue/Pale Resuscitation Effort 1 min: Tactile Stimulation SCORE 1 MIN: 8 Heart Rate 5 min: >100 bpm Resp Effort 5 min: Good Cry Reflex Irritability 5 min: Cough or Sneeze or Pulls Away Muscle Tone 5 min: Active Motion Color 5 min: Body [place], Extremities Blue Resuscitation Effort 5 min: N/A SCORE 5 MIN: 9 Resuscitation Effort 10 min: N/A INFORMATION BABY A Gestational Age at Delivery: 39.6 Gestational Status: Full Term- 39- 40.6 Weeks Outcome : Liveborn Infant Condition : Stable Sex: Male IDENTIFICATION BABY A Verification Date/Time: 07/03/2016 08:11 ID Band Number: [id number] Mother's Name Verified: Yes RN Verifying Infant: Cori Camp RNC/ L Roulund RNC WEIGHT/LENGTH BABY A Infant Birthweight (gm): 3510 Weight (lb): 7 Weight (oz): 12 Length (in): 21.00 Infant Length (cm): 53.34 CORD INFORMATION BABY A No. Cord Vessels: 3 Nuchal Cord : Around Neck x1, Loose Cord Blood Taken: Yes-For Storage (Mom's Blood type +) Suction: None ASSESSMENT BABY A Complications: None Physical Findings at Delivery: Molding of the Head; Abdominal Wall Defect Physical Findings- Other: bruising noted on infant abdominal wall Infant Respirations: Appears Normal Skin to Skin: Yes Skin to Skin Time (min): 60 [place] Hand/ALS Called : No Infant Care By: Cori Cooper C Transferred To: Remains with Mother BABY B INFORMATION : N/A SIGNATURES Assignment: Bibi Acosta MD Signature: with User ID: [email or web address] : with User ID: [email or web address]
--- NOTE | 2016-07-04 19:01 | L&D Flow Sheet ---
LD Flowsheet Datetime Report Generated by CPN: 07/04/2016 19:00 Datetime: 07/04/2016 10:18 NBP Sys/Elizabeth/Mean (mmHg): 114 (QS system process) : 58 (QS system process) : 79 (QS system process) Pulse: 95 (QS system process) Datetime: 07/04/2016 10:00 Stage of : Recovery (Jael Marhefka, RN) Datetime: 07/04/2016 09:52 Stage of : Recovery (Jael Marhefka, RN) Datetime: 07/04/2016 09:30 Stage of : Recovery (Jael Marhefka, RN) Datetime: 07/04/2016 09:15 Stage of : Recovery (Jael Marhefka, RN) Datetime: 07/04/2016 09:07 NBP Sys/Elizabeth/Mean (mmHg): 117 (QS system process) : 54 (QS system process) : 78 (QS system process) Pulse: 107 (QS system process) Datetime: 07/04/2016 09:00 Stage of : Recovery (Jael Roach RN) Pain Scale: 1 (Jael Roach RN) Pain Presence: Constant (Jael Roach RN) Pain Type: Burning (Jael Roach RN) Pain Location: Perineum (Jael Roach RN) Pain Goal: 0 (Jael Roach RN) Pain Relief Measures: Pain Medication Given; Comfort Measures (Jael Roach RN) Datetime: 07/04/2016 08:57 Stage of : Recovery (Jael Roach RN) Datetime: 07/04/2016 08:52 NBP Sys/Elizabeth/Mean (mmHg): 115 (QS system process) : 58 (QS system process) : 79 (QS system process) Pulse: 104 (QS system process) Datetime: 07/04/2016 08:45 Stage of : Recovery (Jael Roach RN) Pain Scale: 1 (Jael Roach RN) Pain Presence: Constant (Jael Roach RN) Pain Type: Burning (Jael Roach RN) Pain Location: Perineum (Jael Roach RN) Pain Goal: 0 (Jael Roach RN) Pain Relief Measures: Comfort Measures (Jael Roach RN) Datetime: 07/04/2016 08:30 Stage of : Recovery (Jael Roach RN) Datetime: 07/04/2016 08:22 NBP Sys/Elizabeth/Mean (mmHg): 101 (QS system process) : 55 (QS system process) : 73 (QS system process) Pulse: 113 (QS system process) Datetime: 07/04/2016 08:15 Stage of : Recovery (Jael Roach RN) Pain Scale: 1 (Jael Roach RN) Pain Presence: Constant (Jael Roach RN) Pain Type: Burning (Jael Roach RN) Pain Location: Perineum (Jael Marhefka, RN) Pain Goal: 0 (Jael Shashafka, RN) Pain Relief Measures: Comfort Measures (Jael Roach, RN) Datetime: 07/04/2016 08:10 Stage of : Recovery (Jael Roach, RN) Datetime: 07/04/2016 07:57 Comments: viable baby boy (Jael Roach, RN) Datetime: 07/04/2016 07:49 Pushing Position: Pushing with Contractions (Cori Camp, RNC) Pushing Progress: with Pushing (Cori Camp, RNC) Datetime: 07/04/2016 07:47 Communication: Provider at Bedside (Cori Camp, RNC) Datetime: 07/04/2016 07:45 Monitor Mode: External (Jael Roach, RN) Frequency (min): 2-3 (Jael Roach RN) Quality: Strong (Jael Roach RN) Duration (sec): 60-80 (Jael Roach, RN) Resting Tone (Palpate): Relaxed (Jael Roach, RN) Monitor Mode: External US (Jael Roach RN) FHR Baseline Rate : 140 (Jael Roach RN) FHR Baseline Changes: No Baseline Change (Jael Roach RN) Variability: Moderate 6-25 bpm (Jael Roach, RN) Accelerations: 15X15 (Jael Roach, RN) Decelerations: Early (Jael Marhefka, RN) Datetime: 07/04/2016 07:30 Monitor Mode: External; Palpation (Jael Marhefka, RN) Frequency (min): 1-4 (Jael Marhefka, RN) Quality: Strong (Jael Marhefka, RN) Duration (sec): 50-80 (Jael Marhefka, RN) Resting Tone (Palpate): Relaxed (Jael Marhefka, RN) Monitor Mode: External US (Jael Marhefka, RN) FHR Baseline Rate : 130 (Jael Marhefka, RN) FHR Baseline Changes: No Baseline Change (Jael Marhefka, RN) Variability: Moderate 6-25 bpm (Jael Marhefka, RN) Accelerations: None (Jael Marhefka, RN) Decelerations: Early (Jael Marhefka, RN) Datetime: 07/04/2016 07:17 Actions for Decelerations: IV Bolus (Jael Marhefka, RN) Datetime: 07/04/2016 07:15 Monitor Mode: External; Palpation (Jael Marhefka, RN) Frequency (min): 1-5 (Jael Marhefka, RN) Quality: Strong (Jael Marhefka, RN) Duration (sec): 40-90 (Jael Marhefka, RN) Resting Tone (Palpate): Relaxed (Jael Marhefka, RN) Monitor Mode: External US (Jael Marhefka, RN) FHR Baseline Rate : 140 (Jael Marhefka, RN) FHR Baseline Changes: No Baseline Change (Jael Marhefka, RN) Variability: Moderate 6-25 bpm (Jael Marhefka, RN) Accelerations: 15X15 (Jael Marhefka, RN) Decelerations: Early; Variable (Jael Marhefka, RN) Dilatation (cm): 10.0 (Jael Marhefka, RN) Effacement (%): 100 (Jael Marhefka, RN) Station: 1 (Jael Marhefka, RN) Exam by: Sharla Negron RN (Jael Marhefka, RN) Datetime: 07/04/2016 07:14 Pitocin (milliunit): Pitocin Discontinued (Jael Roach, RN) Datetime: 07/04/2016 07:13 Pushing: Urge to Push; Involuntary Pushing (Jael Roach RN) Datetime: 07/04/2016 07:00 Respirations: 20 (Marimar Gonsalves) Monitor Mode: External; Palpation (Marimar Gonsalves) Monitor Interventions for UA: Pabellones Adjusted (Marimar Gonsalves) Frequency (min): 1-3 (Marimar Gonsalves) Quality: Moderate to Strong (Marimar Gonsalves) Duration (sec): 50-70 (Marimar Gonsalves) Resting Tone (Palpate): Relaxed (Marimar Gonsalves) Monitor Mode: External US (Marimar Gonsalves) Monitor Interventions for FHR: Ultrasound Adjusted (Marimar Gonsalves) FHR Baseline Rate : 130 (Marimar Gonsalves) FHR Baseline Changes: No Baseline Change (Marimar Gonsalves) Variability: Moderate 6-25 bpm (Marimar Gonsalves) Accelerations: 15X15 (Marimar Gonsalves) Decelerations: None (Marimar Gonsalves) LaborFlag: Labor (QS system process)
[2016-07-05] MEDS: IBUPROFEN 800 MG TABLET PO SCH (05:49)
--- NOTE | 2016-07-05 06:00 | L&D General Admission ---
General Admit Datetime Report Generated by CPN: 07/05/2016 06:00 INFORMATION Patient Age: 26 (04/19/2016 13:23:QS system process) EDC: 07/05/2016 00:00 (07/03/2016 23:23:Naomy Gomez RN) : 2 (07/03/2016 23:23:Naomy Gomez RN) Para: 0 (07/03/2016 23:23:Naomy Gomez RN) Term: 0 (07/03/2016 23:23:Naomy Gomez RN) : 0 (07/03/2016 23:23:Naomy Gomez RN) Spontaneous Abortions: 0 (07/03/2016 23:23:Naomy Gomez RN) Induced Abortions: 0 (07/03/2016 23:23:Naomy Gomez RN) Livin (07/03/2016 23:23:Naomy Gomez RN) Cesareans: 0 (07/03/2016 23:23:Naomy Gomez RN) VBACs: 0 (07/03/2016 23:23:Naomy Goemz RN) Ectopic: 0 (07/03/2016 23:23:Naomy Gomez RN) Multiple Births: 0 (07/03/2016 23:23:Naomy Gomez RN) Baby, Number in Womb: 1 (07/03/2016 23:23:Naomy Gomez RN) CARE Primary Bartender Server: [facility] (07/03/2016 23:23:Naomy Gomez RN) Adequate Care: Yes (07/03/2016 23:23:Naomy Gomez RN) Height (in): 66 (07/04/2016 10:42:QS system process) ALLERGIES Medication Allergy: No (07/03/2016 23:23:Naomy Gomez RN) Medication Allergies: No Known Allergies (07/03/2016) (07/03/2016 23:48:QS system process) Latex Allergy: No Latex Allergies (07/03/2016 23:23:Naomy Gomez RN) Food Allergies: none (07/03/2016 23:23:Naomy Gomez RN) Environmental Allergies: none (07/03/2016 23:23:Naomy Gomez RN) COMMUNICATION Primary Language: Eritrean (07/03/2016 23:23:Naomy Gomez RN) Medical Tx Preferred Language: Eritrean (07/03/2016 23:23:Naomy Gomez RN) Communication Barrier(s): None (07/03/2016 23:23:Margi Mulligan RN) DEMOGRAPHICS Address: [address] [place] [address] (04/19/2016 13:23:QS system process) Zipcode: [address] (04/19/2016 13:23:QS system process) Home (04/19/2016 13:23:QS system process) SSN: [id number] (04/19/2016 13:23:QS system process) Next of Kin Name: DESIREE SPENCE (04/19/2016 13:23:QS system process) Next of Kin (04/19/2016 13:23:QS system process) Next of Kin Relationship: SPO (04/19/2016 13:23:QS system process) Date of : 1990 (04/19/2016 13:23:QS system process) Marital Status: (04/19/2016 13:23:QS system process) Sex: Female (04/19/2016 13:23:QS system process) Race: (04/19/2016 13:23:QS system process) Ethnicity: Non- or (04/19/2016 13:23:QS system process) Yarsanism: None (04/19/2016 13:23:QS system process) DRUG AND ALCOHOL USE Alcohol: No (07/03/2016 23:23:Naomy Gomez RN) Cigarettes: Never Smoker. [id number] (07/03/2016 23:23:Naomy Gomez RN) Marijuana: No (07/03/2016 23:23:Naomy Gomez RN) Cocaine: No (07/03/2016 23:23:Naomy Gomez RN) Other Illicit Drugs: No (07/03/2016 23:23:Naomy Gomez RN) VACCINE HISTORY Influenza Vaccine: Yes (07/03/2016 23:23:Naomy Gomez RN) Pneumococcal Vaccine: No (07/03/2016 23:23:Naomy Gomez RN) Tetanus Vaccine: Yes (07/03/2016 23:23:Naomy Gomez RN) Tdap Vaccine: Yes (07/03/2016 23:23:Naomy Gomez RN) Hepatitis B Vaccine: Yes (07/03/2016 23:23:Naomy Gomez RN) Feeding Preference: Breast (07/03/2016 23:23:Naomy Gomez RN) Benefit of Breast Feed Discussed: Yes (07/03/2016 23:23:Naomy Gomez RN) Circumcision: Yes (07/03/2016 23:23:Naomy Gomez RN) Classes Attended: Yes (07/03/2016 23:23:Naomy Gomez RN) Tubal Ligation: No (07/03/2016 23:23:Naomy Gomez RN) Tubal Authorization Signed: N/A (07/03/2016 23:23:Naomy Gomez RN) Consent: N/A (07/03/2016 23:23:Naomy Gomez RN) Consent Signed: N/A (07/03/2016 23:23:Naomy Gomez RN) Pain Management Plans: Natural; Medications; Epidural (07/03/2016 23:23:Naomy Gomez RN) Other Pain Management Plans: open to options (07/03/2016 23:23:Naomy Gomez RN) Plans for Labor and Delivery: None (07/03/2016 23:23:Naomy Gomez RN) Support Person: Desiree (07/03/2016 23:23:Naomy Gomez RN) Support Person Relationship: (07/03/2016 23:23:Naomy Gomez RN) Cultural/Spritual Practice: No (07/03/2016 23:23:Naomy Gomez RN) Spir/Cult Dietary Needs: No (07/03/2016 23:23:Naomy Gomez RN) LIVING SITUATION/DISCHARGE PLAN Living Arrangements: House (07/03/2016 23:23:Naomy Gomez RN) Adequate Access to:: Electric; Heat; Refrigeration; Plumbing/Running water; Phone; Transportation (07/03/2016 23:23:Naomy Gomez RN) WIC Program: Yes (07/03/2016 23:23:Naomy Gomez RN) Discharge Cardiac Technician Person: Desiree (07/03/2016 23:23:Naomy Gomez RN) Person to Help after Discharge: Desiree (07/03/2016 23:23:Naomy Gomez RN) Currently Using Commun Resources: Yes (07/03/2016 23:23:Naomy Gomez RN) Specify Current Resource Used: WIC (07/03/2016 23:23:Naomy Gomez RN) Outside Agency/Resident Care Manager Rn: No (07/03/2016 23:23:Naomy Gomez RN) Car Seat for Discharge: Yes (07/03/2016 23:23:Naomy Gomez RN) Adoption Requested: No (07/03/2016 23:23:Naomy Gomez RN) Pt Contact w/infant Post : N/A (07/03/2016 23:23:Naomy Gomez RN) LABS Blood Type: A Positive (07/03/2016 23:23:Dominga Greenfield RN) Antibody Screen: Negative (07/03/2016 23:23:Dominga Greenfield RN) Rho(G) this : Not Applicable (07/03/2016 23:23:Dominga Greenfield RN) Hemoglobin: 11.2 L (07/04/2016 00:10:QS system process) Hematocrit: 34.4 L (07/04/2016 00:10:QS system process) MCV: 78 L (07/04/2016 00:10:QS system process) Group Beta Strep: Positive (07/03/2016 23:23:Dominga Greenfield RN) Gonorrhea: Negative (07/03/2016 23:23:Dominga Greenfield RN) Chlamydia: Negative (07/03/2016 23:23:Dominga Greenfield RN) RPR/VDRL: Nonreactive (07/03/2016 23:23:Dominga Greenfield RN) HIV Results: Negative (07/03/2016 23:23:Dominga Greenfield RN) Hepatitis B: Negative (07/03/2016 23:23:Dominga Greenfield RN) Rubella: Immune (07/03/2016 23:23:Dominga Greenfield RN) Pap Test: Abnormal (07/03/2016 23:23:Dominga Greenfield RN) OB/PREVIOUS HISTORY Previous Procedures: None (07/03/2016 23:23:Dominga Greenfield RN) Current Procedures: Ultrasound; NST (07/03/2016 23:23:Naomy Gomez RN) History of Previous : No (07/03/2016 23:23:Naomy Gomez RN) History of Gestational Diabetes: No (07/03/2016 23:23:Naomy Gomez RN) History of PIH: No (07/03/2016 23:23:Naomy Gomez RN) History of Incompetent Cervix: No (07/03/2016 23:23:Naomy Gomez RN) History of Placenta Previa/Abrup: No (07/03/2016 23:23:Naomy Gomez RN) History of Macrosomia: No (07/03/2016 23:23:Naomy Gomez RN) History of IUGR: No (07/03/2016 23:23:Naomy Gomez RN) History of Hemorrhage: No (07/03/2016 23:23:Naomy Gomez RN) History of Loss/Stillborn: No (07/03/2016 23:23:Naomy Gomez RN) History of : No (07/03/2016 23:23:Naomy Gomez RN) History of D (Rh) Sensitization: No (07/03/2016 23:23:Naomy Gomez RN) History Recurrent Loss/Stillborn: No (07/03/2016 23:23:Naomy Gomez RN) History Depression/PP Depression: No (07/03/2016 23:23:Naomy Gomez RN) History of Uterine Anomaly/LINDA: No (07/03/2016 23:23:Naomy Gomez RN) History of Infertility: No (07/03/2016 23:23:Naomy Gomez RN) History of ART Treatment: No (07/03/2016 23:23:Naomy Gomez RN) History of LINDA: No (07/03/2016 23:23:Naomy Gomez RN) Comments Obstetrical History: G1: 2013 G2: Current (07/03/2016 23:23:Naomy Gomez RN) MEDICAL HISTORY Med Hx Diabetes: No (07/03/2016 23:23:Naomy Gomez RN) Med Hx Hypertension: No (07/03/2016 23:23:Naomy Gomez RN) Med Hx Heart Disease: No (07/03/2016 23:23:Naomy Gomez RN) Med Hx Autoimmune Disorder: No (07/03/2016 23:23:Naomy Gomez RN) Med Hx Kidney Disease/UTI: No (07/03/2016 23:23:Naomy Gomez RN) Med Hx Neurologic/Epilepsy: No (07/03/2016 23:23:Naomy Gomez RN) Med Hx Psychiatric Disorders: No (07/03/2016 23:23:Naomy Gomez RN) Med Hx Hepatitis/Liver Disease: No (07/03/2016 23:23:Naomy Gomez RN) Med Hx Varicosities/Phlebitis: No (07/03/2016 23:23:Naomy Gomez RN) Med Hx Thyroid Dysfunction: No (07/03/2016 23:23:Naomy Gomez RN) Med Hx Trauma/Violence: No (07/03/2016 23:23:Naomy Gomez RN) Med Hx Blood Transfusion: No (07/03/2016 23:23:Naomy Gomez RN) Med Hx Pulmonary (Asthma,TB): No (07/03/2016 23:23:Naomy Gomez RN) Med Hx Breast: No (07/03/2016 23:23:Naomy Gomez RN) Med Hx MANAGER ENROLLMENT Surgery: No (07/03/2016 23:23:Naomy Gomez RN) Med Hx Hospitalization/Surgery: No (07/03/2016 23:23:Naomy Gomez RN) Med Hx Anesthetic Complications: No (07/03/2016 23:23:Naomy Gomez RN) Med Hx Abnormal Pap Smear: Yes (07/03/2016 23:23:Naomy Gomez RN) Other Medical Diseases: No (07/03/2016 23:23:Naomy Gomez RN) Med Hx Significant Family Hx: No (07/03/2016 23:23:Naomy Gomez RN) Details of Med/Surg Hx: abnormal pap during pregancy- to repeat after delivery (07/03/2016 23:23:Naomy Gomez RN) INFECTIOUS HISTORY Inf Hx Gonorrhea: No (07/03/2016 23:23:Naomy Gomez RN) Inf Hx Chlamydia: No (07/03/2016 23:23:Naomy Gomez RN) Inf Hx Syphilis: No (07/03/2016 23:23:Naomy Gomez RN) Inf Hx HIV/AIDS: No (07/03/2016 23:23:Naomy Gomez RN) Inf Hx Human Papilloma Virus: Yes (07/03/2016 23:23:Naomy Gomez RN) Inf Hx Pt/Partner Genital Herpes: No (07/03/2016 23:23:Naomy Gomez RN) Inf Hx Tuberculosis/Exposure: No (07/03/2016 23:23:Naomy Gomez RN) Inf Hx Hepatitis B,C: No (07/03/2016 23:23:Naomy Gomez RN) Inf Hx Rash or Viral Illness: No (07/03/2016 23:23:Naomy Gomez RN) GENETIC HISTORY Gen Hx Age >=35 at DANIELLE: No (07/03/2016 23:23:Naomy Gomez RN) Gen Hx Thalassemia: No (07/03/2016 23:23:Naomy Gomez RN) Gen Hx Congenital Heart Defect: No (07/03/2016 23:23:Naomy Gomez RN) Gen Hx Neural Tube Defect: No (07/03/2016 23:23:Naomy Gomez RN) Gen Hx Down's Syndrome: No (07/03/2016 23:23:Naomy Gomez RN) Gen Hx Ernie-Sachs: No (07/03/2016 23:23:Naomy Gomez RN) Gen Hx Morena: No (07/03/2016 23:23:Naomy Gomez RN) Gen Hx Familial Dysautonomia: No (07/03/2016 23:23:Naomy Gomez RN) Gen Hx Sickle Cell Disease/Trait: No (07/03/2016 23:23:Naomy Gomez RN) Gen Hx Hemophilia/Blood Disorder: No (07/03/2016 23:23:Naomy Gomez RN) Gen Hx Muscular Dystrophy: No (07/03/2016 23:23:Naomy Gomez RN) Gen Hx Cystic Fibrosis: No (07/03/2016 23:23:Naomy Gomez RN) Gen Hx Huntingtons Chorea: No (07/03/2016 23:23:Naomy Gomez RN) Gen Hx Mental Retardation/Autism: No (07/03/2016 23:23:Naomy Gomez RN) Gen Hx Tested for Fragile X: No (07/03/2016 23:23:Naomy Gomez RN) Gen Hx Other Inher/Chromosomal: No (07/03/2016 23:23:Naomy Gomez RN) Gen Hx Maternal Metabolic DO: No (07/03/2016 23:23:Naomy Gomez RN) Gen Hx Pt Father or FOB Defect: No (07/03/2016 23:23:Naomy Gomez RN) Gen Hx Other Genetic History: No (07/03/2016 23:23:Naomy Gomez RN) Gen Hx Drugs/Meds since LMP: Yes (07/03/2016 23:23:Naomy Gomez RN) Gen Hx Medications: PNV (07/03/2016 23:23:Naomy Gomez RN)
--- NOTE | 2016-07-05 06:00 | L&D Current Admission ---
Current Admit Datetime Report Generated by CPN: 07/05/2016 06:00 ADMISSION INFORMATION Current Admit Date/Time: 07/04/2016 00:33 (07/04/2016 00:33:Naomy Gomez RN) Reason for Admission: Rupture of Membranes (07/04/2016 00:33:Naomy Gomez RN) Chief Complaint: Suspected Rupture of Membranes (07/03/2016 23:28:Naomy Gomez RN) EGA per Dates: 39.6 (07/04/2016 00:33:QS system process) Method of Arrival: Wheelchair (07/04/2016 00:33:Naomy Gomez RN) Admitted From: Home (07/04/2016 00:33:Naomy Gomez RN) Reason for Induction: Not Applicable (07/04/2016 00:33:Naomy Gomez RN) Records Available: Yes (07/04/2016 00:33:Naomy Gomez RN) General Admission Information: Reviewed (07/04/2016 00:33:Naomy Gomez, RN) BELONGINGS/ADVANCED DIRECTIVES Comments Regarding Disposition: see belongings consent form (07/04/2016 00:33:Naomy Gomez RN) Advance Direct for Healthcare: No, and Wants No Information (07/04/2016 00:33:Naomy Gomez RN) Durable Power of Risk Developer: No (07/04/2016 00:33:Naomy Gomez RN) Living Will: No (07/04/2016 00:33:Naomy Gomez RN) Organ Donor: No (07/04/2016 00:33:Naomy Gomez RN) Pt Rights Information Given: Yes (07/04/2016 00:33:Naomy Gomez RN) Pt Understands Pt Rights: Yes (07/04/2016 00:33:Naomy Gomez RN) LEARNING ASSESSMENT Knowledge Level: Understands L_D Process; Understands Care Activities; Understands Diagnosis (07/04/2016 00:33:Naomy Gomez RN) Barriers to Learning: None (07/04/2016 00:33:Naomy Gomez RN) Learning Readiness: Motivated (07/04/2016 00:33:Naomy Gomez RN) Learns Best By: 1 to 1 Instruction; Reading; Videos; Demonstration (07/04/2016 00:33:Naomy Gomez RN) Learning Needs: Labor and Delivery Process; Pain Management; Symptoms to Report; Treatment Plan; Medication; Diagnosis; Nutrition; Equipment; Infant Care; Community Resources (07/04/2016 00:33:Naomy Gomez RN) DOMESTIC VIOLANCE SCREENING Dom Viol Threatened/Hurt: No (07/04/2016 00:33:Naomy Gomez RN) Hx of Abuse/Neglect past 2yrs: No (07/04/2016 00:33:Naomy Gomez RN) Feel Unsafe Going Home: No (07/04/2016 00:33:Naomy Gomez RN) Addt'l Observ Indicating Abuse: No (07/04/2016 00:33:Naomy Gomez RN) Reason Unable to Complete Screen: N/A, Screen Completed (07/04/2016 00:33:Naomy Gomez RN) Considered Personal Harm/Suicide: No (07/04/2016 00:33:Naomy oGmez RN) NUTRITIONAL/FUNCTIONAL SCREENING Problem with Appetite >5 Days: No (07/04/2016 00:33:Naomy Gomez RN) Chew/Swallow Difficulties: No (07/04/2016 00:33:Naomy Gomez RN) Inappropriate Wt Gain/Loss: No (07/04/2016 00:33:Naomy Gomez RN) Presence Skin Breakdown/Ulcer: No (07/04/2016 00:33:Naomy Gomez RN) Special Diet: No (07/04/2016 00:33:Naomy Gomez RN) Pt Requests Web Publisher Visit: No (07/04/2016 00:33:Naomy Gomez RN) Hx of Any of the Following?: N/A (07/04/2016 00:33:Naomy Gomez RN) New Diagnosis of: N/A (07/04/2016 00:33:Naomy Gomez RN) Requires Assist w/Ambulation: No (07/04/2016 00:33:Naomy Gomez RN) Uses Assist Device to Ambulate: No (07/04/2016 00:33:Naomy Gomez RN) Pt Requires Help w/ADL's: No (07/04/2016 00:33:Naomy Gomez RN)
--- NOTE | 2016-07-05 06:15 | L&D Care Plan ---
LD CARE PLANS Datetime Report Generated by CPN: 07/05/2016 06:15 Datetime: 07/04/2016 00:04 Pain State: Actual (Dominga Greenfield RN) Related To: Labor and Delivery Process; Disease Process; Treatment and Procedures; Post (Dominga Greenfield RN) Goal(s): Patients Pain will be Assessed and Managed; Patient will Verbalize Adequate Relief of Pain or the Ability to [place] with Current Pain (Dominga Greenfield RN) Interventions: Assess Pain Severity on Scale of 0 (None) to 5 (Severe); Assess Type, Location and Intensity of Pain Each Time Client Reports Discomfort and Notify Provider if Unusal Pain Develops; Encourage Proper Breathing and Relaxation Techniques; Offer Alternatives Such as Repositioning, Calm Environment, Massages, Diversional Activities, Ice Pack, Splinting, and Ambulation; Administer Analgesics as Ordered; Assist with Epidural Placement as Appropriate; Evaluate Therapeutic Effectiveness of Medication and Treatments (Dominga Greenfield RN) Outcome: Patient will Report Absence or Relief of Pain Consistent with Established Pain Goal (Dominga Greenfield RN) Status: Ongoing (Dominga Greenfield RN) Outcome: Patient will have a Decrease in Signs and Symptoms of Discomfort (Dominga Greenfield RN) Status: Ongoing (Dominga Greenfield RN) Outcome: Pain will be Controlled During Procedures (Dominga Greenfield RN) Status: Ongoing (Dominga Greenfield RN) Anxiety State: Risk For (Dominga Greenfield RN) Related To: Labor and Delivery Process; Situational Crisis; Significant Life Event (Dominga Greenfield RN) Goal(s): Patient will have Decreased Anxiety and be able to Function at Acceptable Levels (Dominga Greenfield RN) Interventions: Assess Verbal and Nonverbal Behavioral Indicators of Anxiety; Assist Patient to Identify and Verbalize Symptoms of Anxiety; Identify and Demonstrate Techniques to Control Anxiety; Assist Patient with Coping Mechanisms to Manage Anxiety; Provide Theraputic Touch for the Patient; Explain to Patient, Using a Calm Reassuring Approach and Nonmedical Terms, All Activities, Procedures, and Concerns; Instruct Patient and Family about Post Discharge Care, Limitations, Symptoms to Report and Resources Available (Dominga Greenfield RN) Outcome: Patient will Identify, Verbalize and Demonstrate Techniques to Control Anxiety (Dominga Greenfield RN) Status: Ongoing (Dominga Greenfield RN) Outcome: Patient's Posture, Facial Expressions, Gestures and Activity Level will Reflect Decreased Anxiety (Dominga Greenfield RN) Status: Ongoing (Dominga Greenfield RN) Outcome: Patient will Verbalize a Sense of Control and/or Acceptance of the Situation (Dominga Greenfield RN) Status: Ongoing (Dominga Greenfield RN) Outcome: Patient will Identify and Utilize Support Person (Dominga Greenfield RN) Status: Ongoing (Dominga Greenfield RN) Knowledge Deficit State: Actual (Dominga Greenfield RN) Related To: Labor and Delivery Process; Treatment and Procedures; Impending Alterations in Family Dynamics; Feeding and Care; Community Resources and Available Support Mechanisms (Dominga Greenfield RN) Goal(s): Patient will Accurately Verbalize Understanding of Plan of Care and Treatment; Patient and Family will Accurately Verbalize Understanding of the Disease Process (Dominga Greenfield RN) Interventions: Assess Motivation and Willingness of Patient/Family to Learn; Assess Preferred Learning Mode: One to One Instruction, Reading, Videos, Group Discussion or Demonstration; Assess Barriers to Learning: Pain, Emotional State, Language Barrier, Cognitive Impairment, Visual or Hearing Deficits; Assess Patient and Family Knowledge of Disease Process, Medications and Treatment; Discuss Therapy and/or Treatment Options, Describe Rationale Behind Management, Therapy and Treatment Recommendations; Instruct Patient and Family on Signs and Symptoms to Report; Instruct Patient and Family on Medication Effects and Side Effects; Provide Appropriate and Timely Education Using Multiple Techniques; Provide Patient and Family with Support Group Information and Resources; Give Clear and Thorough Explanations and Demonstrations (Dominga Greenfield RN) Outcome: Patient and Family will Verbalize Understanding of Condition, Treatment and Signs and Symptoms to Report (Dominga Greenfield RN) Status: Ongoing (Dominga Greenfield RN) Outcome: Patient will Identify Perceived Learning Needs and Express Motivation to Learn (Dominga Greenfield RN) Status: Ongoing (Dominga Greenfield RN) Outcome: Patient will Verbalize Understanding of Desired Content, and/or Performs Desired Skill Prior to Discharge (Dominga Greenfield RN) Status: Ongoing (Dominga Greenfield RN) Infection State: Risk For (Dominga Greenfield RN) Related To: Surgical Procedures; Prolonged Labor or Induction; Premature/Prolonged Rupture of Membranes; Invasive Procedures; Altered Tissue Integrity (Dominga Greenfield RN) Goal(s): The Patient will be Free of Infection, Vital Signs Stable and Lab Work within Normal Parameters (Dominga Greenfield RN) Interventions: Instruct and Reinforce Proper Handwashing, Hygiene, and Care Techniques to Patient and Family; Monitor Vital Signs; Monitor Patient for the Following Signs of Infection: Fever, Abdominal Tenderness, Unusual Discharge; Monitor Aminiotic Fluid, Urine and Lochia for Color and Odor; Observe Wounds, Incisions and Invasive Line Sites for Redness, Drainage and Edema; Assess IV Sites per Hospital Policy; Monitor Lab and Test Results and Notify Provider of Abnormal Findings; Assess Nutritional Status and Promote Good Nutrition (Dominga Greenfield RN) Outcome: Patient will Remain Free of Infection (Dominga Greenfield RN) Status: Ongoing (Dominga Greenfield RN) Outcome: Infection will be Recognized Early to Allow for Prompt Treatment (Dominga Greenfield RN) Status: Ongoing (Dominga Greenfield RN) Outcome: Patient will have Vital Signs Within Expected Range (Dominga Greenfield RN) Status: Ongoing (Dominga Greenfield RN) Fluid Volume State: Risk For (Dominga Greenfield RN) Related To: Prolonged Labor or Induction (Dominga Greenfield RN) Goal(s): Patient will Achieve and Maintain a Balanced Fluid Volume Status; Hemodynamically Stable (Dominga Greenfield RN) Interventions: Monitor Vital Signs; Auscultate Breath Sounds; Monitor Patient for Skin Turgor, Mucous Membranes, Dry Skin, Weakness, Headaches and Confusion; Provide Oral Fluids as Ordered; Initiate and Maintain Intravenous Fluids as Ordered; Monitor Intake and Output as Indicated Per Patient Status; Accurately Measure Blood Loss; Monitor Lab and Test Results as Obtained and Notify Provider of Abnormal Findings; Monitor Patient's Weight (Dominga Greenfield RN) Outcome: Patient will have Clear Lung Sounds (Dominga Greenfield RN) Status: Ongoing (Dominga Greenfield RN) Outcome: Patient will have Vital Signs within Expected Range (Dominga Greenfield RN) Status: Ongoing (Dominga Greenfield RN) Outcome: Urine Output will be within Expected Range (Dominga Greenfield RN) Status: Ongoing (Dominga Greenfield RN) Outcome: Patient will have Minimal Generalized or Upper Extremity Edema (Dominga Greenfield RN) Status: Ongoing (Dominga Greenfield, PEG) Injury State: Risk For (Dominga Greenfield RN) Related To: Labor and Delivery Process; Anesthesia (Dominga Greenfield RN) Goal(s): Patient will Remain Free from Injury (Dominga Greenfield RN) Interventions: Monitoring as per Hospital Protocol; Assess Neurological Status; Perform Risk Assessment of Patients with Induction and ; Perform Fall Risk Assessment and Prevention per Hospital Protocol; Perform DVT Risk Assessment and Prophylaxis per Hospital Protocol; Ensure that Oxygen, Suction, and Resuscitation Medications and Equipment are Readily Available; Confirm Patient ID Prior to Procedure(s) and Medication Administration per Hospital Policy (Dominga Greenfield RN) Outcome: Successful Fall Risk Prevention (Dominga Greenfield RN) Status: Ongoing (Dominga Greenfield RN) Outcome: Patient will Deliver Infant without Adverse Sequela (Dominga Greenfield RN) Status: Ongoing (Dominga Greenfield RN) Outcome: Patient's Neurological Status will Remain Stable (Dominga Greenfield RN) Status: Ongoing (Dominga Greenfield, RN) Impaired Skin Integrity State: Risk For (Dominga Greenfield RN) Related To: Vaginal Delivery; Altered Tissue Integrity; Invasive Procedures (Dominga Greenfield RN) Goal(s): Patient will Maintain Optimal Skin Integrity, Free of Breakdown, Injury or Infection (Dominga Greenfield RN) Interventions: Complete Screening for Pressure Ulcer Risk and Initiate Protocol per Hospital Policy; Monitor Site of Skin Impairment for Color Changes, Redness, Swelling, Warmth, Pain or Other Signs of Infection; Encourage and Assist with Position Changes; Monitor Patient's Mobility Status; Provide Adequate Nutrition and Fluids; Teach Patient Appropriate Hygienic Care; Teach Patient/Family Skin Care Management (Dominga Greenfield RN) Outcome: Patient will not have Evidence of Injury Such as Skin Breakdown, Scrapes, Cuts, or Bruising (Dominga Greenfield RN) Status: Ongoing (Dominga Greenfield RN) Outcome: Patient will Report Any Altered Sensation or Pain at Site of Skin Impairment (Dominga Greenfield RN) Status: Ongoing (Dominga Greenfield RN) Outcome: Patients Incisions and Wounds will be without Signs or Symptoms of Infection (Dominga Greenfield RN) Status: Ongoing (Dominga Greenfield RN) Outcome: Patient will Demonstrate Understanding of Plan to Heal Skin and Prevent Reinjury and Verbalize Risk Factors (Dominga Greenfield RN) Status: Ongoing (Dominga Greenfield RN) Nutrition State: Risk For (Dominga Greenfield RN) Related To: ; (Dominga Greenfield RN) Goal(s): Patient will have an Intake of Nutrients Sufficient to Meet Metabolic Needs (Dominga Greenfield RN) Interventions: Nutritional Screening and Assessment per Hospital Policy; Allow Patient to Plan and Order Diet when Possible; Educate Patient on the Importance of Maintaining an Adequate Caloric Intake (Dominga Greenfield RN) Outcome: Patient will Receive Adequate Calories and Fluid Volume to Meet Metabolic Needs (Dominga Greenfield RN) Status: Ongoing (Dominga Greenfield RN) Outcome: Patient will Select Foods or Meals that Support Adequate Nutrition (Dominga Greenfield RN) Status: Ongoing (Dominga Greenfield RN) Grieving State: Not Applicable (Dominga Greenfield RN) Additional Care Plan State: Risk For (Dominga Greenfield RN) Nursing Diagnosis or r/t: (Dominga Greenfield RN) Goal(s): Patient will breastfeed at least 8 times in 24 hours. (Dominga Greenfield, PEG) Interventions: Support parents in efforts. (Dominga Greenfield, PEG) Outcome Status: Ongoing (Dominga Greenfield RN)
[2016-07-05] MEDS: PRENATAL VITAMIN W-O CA NO5/FE FUMARATE/FA CAPSULE PO SCH (09:36)
[2016-07-05] MEDS: SENNOSIDES/DOCUSATE 8.6-50 MG 1 EACH TABLET PO SCH (09:36)
[2016-07-05] MEDS: FERROUS SULFATE 325 MG TABLET PO SCH (09:37)
[2016-07-05] MEDS: DOCUSATE SODIUM 100 MG CAPSULE PO SCH (09:37)
[2016-07-05 09:38] LABS: HEMATOCRIT 33.7 % (36.0-47.0); HEMOGLOBIN 10.9 g/dL (12.0-15.5); MEAN CORPUSCULAR HEMOGLOBIN 25.5 pg (27.0-33.4); MEAN CORPUSCULAR HGB CONC 32.5 g/dL (32.0-36.0); MEAN CORPUSCULAR VOLUME 79 fl (80-97); RED BLOOD COUNT 4.29 10^6/uL (3.72-5.28); RED CELL DISTRIBUTION WIDTH 15.6 % (11.5-14.0); WHITE BLOOD COUNT 22.3 10^3/uL (4.0-10.5)
--- NOTE | 2016-08-14 16:22 | PDOC DISCHARGE SUMMARY ---
Final Diagnosis Discharge Date: 07/06/16 Discharge Data - Discharge Medication Home Medications: Vit/Iron Fumarate/FA [ Tablet] 1 tab PO DAILY 07/03/16 Reason(s) for Admission: Onset of Labor Procedures: NST Intrapartum Procedure(s): Spontaneous Vaginal Delivery - [place] Data Baby 1 Male at 1 minute: 9 at 5 minutes: 9 Home with Mother: Yes Complications: No - Diagnosis Test Laboratory: Temp Pulse Resp BP Pulse Ox 99.5 F 98 16 121/59 L 97 07/05/16 10:21 07/05/16 10:21 07/05/16 10:21 07/04/16 11:44 07/05/16 10:21 07/03/16 07/04/16 07/05/16 23:06 00:10 08:21 RBC 4.42 4.29 Hgb 11.2 L 10.9 L Hct 34.4 L 33.7 L Urine Opiates Screen NEGATIVE - Discharge information/Instructions Discharge Activity: Activity As Tolerated, Balance Activity w/Rest, Pelvic Rest , No tub bath Discharge Diet: Regular Disposition: HOME, SELF-CARE Follow up with: [facility] in: 4, Weeks
== END 2016-07-05 10:00 | disposition home or self-care (01) | DRG 775 ==
LOC: LC 22:43 → LR 07-04 00:01 → 2N 07-04 10:42
PROVIDERS: ADMIT Obstetrics & Gynecology; ATTEND Obstetrics & Gynecology
PROC: 10E0XZZ Delivery of Products of Conception, External Approach (ICD-10-PCS; principal; 2016-07-04)
PROC: 0KQM0ZZ Repair Perineum Muscle, Open Approach (ICD-10-PCS; 2016-07-04)
PROC: 4A1HXCZ Monitoring of Products of Conception, Cardiac Rate, External Approach (ICD-10-PCS; 2016-07-04)
DX: O99.824 Streptococcus B carrier state complicating childbirth (principal); O62.3 Precipitate labor; O69.81X0 Labor and delivery complicated by cord around neck, without compression, not applicable or unspecified; O70.1 Second degree perineal laceration during delivery; Z3A.39 39 weeks gestation of pregnancy; Z37.0 Single live birth
CPT/HCPCS: 36415; 80307; 81005; 84112; 85025; 85027; 86592; 86850; 86900; 86901; J2540; J2590; J3490; Q0114

== ENCOUNTER → 2018-09-18 | Outpatient (CLI) | payer OTHER ==
--- NOTE | 2018-09-18 14:33 | RADIOLOGY REPORT (SQ) ---
EXAM DESCRIPTION: KNEE RIGHT 2 VIEWS COMPLETED DATE/TIME: 09/18/2018 1:35 pm REASON FOR STUDY: JONAS KNEE PAIN M25.561 PAIN IN RIGHT KNEE COMPARISON: None. NUMBER OF VIEWS: Two views. TECHNIQUE: AP and lateral radiographic images acquired of the right knee. LIMITATIONS: None. FINDINGS: MINERALIZATION: Normal. BONES: No acute fracture or dislocation. No worrisome bone lesions. JOINT: No effusion. SOFT TISSUES: No soft tissue swelling. No radio-opaque foreign body. OTHER: No other significant finding. IMPRESSION: NEGATIVE STUDY OF THE RIGHT KNEE. NO RADIOGRAPHIC EVIDENCE OF ACUTE INJURY. TECHNICAL DOCUMENTATION: JOB ID: [id number] [employer]- All Rights Reserved Reading location - IP/workstation name: [email or web address]
--- NOTE | 2018-09-18 14:34 | RADIOLOGY REPORT (SQ) ---
EXAM DESCRIPTION: KNEE LEFT 4 VIEWS COMPLETED DATE/TIME: 09/18/2018 1:35 pm REASON FOR STUDY: JONAS KNEE PAIN M25.561 PAIN IN RIGHT KNEE COMPARISON: None. NUMBER OF VIEWS: Four views. TECHNIQUE: AP, lateral, and both oblique radiographic images acquired of the left knee. LIMITATIONS: None. FINDINGS: MINERALIZATION: Normal. BONES: No acute fracture or dislocation. No worrisome bone lesions. JOINT: No effusion. SOFT TISSUES: No soft tissue swelling. No radio-opaque foreign body. OTHER: No other significant finding. IMPRESSION: NEGATIVE STUDY OF THE LEFT KNEE. NO RADIOGRAPHIC EVIDENCE OF ACUTE INJURY. TECHNICAL DOCUMENTATION: JOB ID: [id number] [employer]- All Rights Reserved Reading location - IP/workstation name: [email or web address]
== END ==
LOC: OD 13:01
PROVIDERS: ATTEND Physician Assistant
DX: M25.561 Pain in right knee (principal); M25.562 Pain in left knee